=== PATIENT | male | born 1955 | race Caucasian/White ===

== ENCOUNTER 2021-03-08 06:26 | Day surgery (SDC) | payer MEDICARE ==
[~2021-03-08] VITALS: Ht 190.5 cm; Wt 76.5 kg
[2021-03-08] VITALS (11 sets, daily range): BP systolic 112–140; BP diastolic 60–88; PULSE 56–83; TEMP 97.4–98.6
[2021-03-08] MEDS ORDERED: MOTRIN 200200 MG/TAB PO (07:05)
--- NOTE | 2021-03-08 07:17 | NUR ---
TO RM 7 AT 0645- CALL LIGHT IN REACH AT BEDSIDE.
--- NOTE | 2021-03-08 11:38 | NUR ---
PT. SAYS CANNOT FEEL FROM WAIST TO TOES YET
--- NOTE | 2021-03-08 15:54 | NUR ---
Patient arrived to floor at 1045. Post op checks initiated and completed. IVF per order. CBI at a slow rate, urine is clear and light pink. Patient denies pain, complete sensation in legs has not returned from spinal yet. Patient tolerated full liquids well. Denies further needs, call light within reach.
--- NOTE | 2021-03-08 16:51 | NUR ---
REPORT FROM EULALIO RN ASSUMING CARE FOR PATIENT.
--- NOTE | 2021-03-08 21:00 | NUR ---
PT IN BED. IS ALERT AND ORIENTED X4. HAS CROUCH WITH CBI AT MODERATE RATE, URINE IS PINK. DENIES PAIN. CATHETER CARE GIVEN. SL TO LEFT FOREARM, FLUSHES WELL.
[2021-03-09 00:11] VITALS: BP 130/74; PULSE 77; TEMP 98.1
[2021-03-09 04:05] VITALS: BP 130/84; PULSE 71; TEMP 98.6
--- NOTE | 2021-03-09 05:00 | NUR ---
PT HAS RESTED WELL. CROUCH WITH CBI AT SLOW RATE. URINE PEACH COLORED.
[2021-03-09 08:10] VITALS: BP 130/80; PULSE 91; TEMP 98.1
--- NOTE | 2021-03-09 08:30 | NUR ---
Patient in bed resting. Alert and oriented x 3. Assessment complete. Denies pain at this time. CBI clamped at this time, urine light pink to peach in color. INT to left forarm. Spouse at bedside. Denies further needs at this time.
--- NOTE | 2021-03-09 08:55 | NUR ---
FRANCO met with the patient and his , Lesia (ph#[phone]), to discuss discharge plan. The patient lives in [place] with his . He reports independence with ADLs and has crutches available, if needed. His PCP is Dr. Jalil Tilley and he receives his medications from [facility]. He reports no difficulties obtaining his meds. The patient does not have a DPOA-HC and he was not interested in completing one while here. The patient plans to return home with his upon discharge. No additional needs at this time.
--- NOTE | 2021-03-09 09:15 | NUR ---
Initial visit; Patient and his thanked Vice President Planning for looking in on [facility] and stated that they have no spiritual needs at this time but thanked [employer] President [employer] for offering God's blessings to their family.
--- NOTE | 2021-03-09 10:34 | NUR ---
ordered prime and pull. Instilled 250ml into bladder prior to removing the catheter. Verified that balloon was intact. Pericare provided.
--- NOTE | 2021-03-09 11:06 | NUR ---
Dr. Chen in to see patient.
[2021-03-09 12:30] VITALS: BP 130/80; PULSE 71; TEMP 98.4
--- NOTE | 2021-03-09 13:15 | NUR ---
Contacted Dr. Chen, bladder scanned patient for 688 ml of urine in bladder, patient states he does not feel like if he needs to void. Denies further needs at this time.
--- NOTE | 2021-03-09 16:03 | NUR ---
Patient able to void 275 mls of urine.
[2021-03-09 16:51] VITALS: BP 138/82; PULSE 67; TEMP 98
--- NOTE | 2021-03-09 17:30 | NUR ---
Patient able to void 300 ml urine
--- NOTE | 2021-03-09 18:19 | NUR ---
Patient voided 200 ml urine
--- NOTE | 2021-03-09 19:25 | NUR ---
Discharge instructions provided to patient. Educated on when to call provider and how to self cath. Provided patient with x2 16 F coude straight cath per Dr. Chen. Patient to self cath PRN. All questions answered. INT discontinued, catheter tip intact. Denies further needs at this time. Spouse at bedside.
--- NOTE | 2021-03-09 19:30 | NUR ---
Patient out by wheelchair with surgical staff and spouse.
== END 2021-03-09 19:31 | disposition home or self-care (01) ==
LOC: SDCO 06:26 → SURG 06:26 → SDCO 10:00 → SURG 10:45 → SDCO 03-09 19:31
DX: N40.1 Benign prostatic hyperplasia with lower urinary tract symptoms (principal); N13.39 Other hydronephrosis; N13.8 Other obstructive and reflux uropathy; N32.89 Other specified disorders of bladder; R33.8 Other retention of urine; M19.90 Unspecified osteoarthritis, unspecified site; M43.10 Spondylolisthesis, site unspecified; I10 Essential (primary) hypertension; F17.210 Nicotine dependence, cigarettes, uncomplicated; Z79.891 Long term (current) use of opiate analgesic; Z79.899 Other long term (current) drug therapy; Z86.73 Personal history of transient ischemic attack (TIA), and cerebral infarction without residual deficits; Z20.822 Contact with and (suspected) exposure to COVID-19; Z88.8 Allergy status to other drugs, medicaments and biological substances
CPT/HCPCS: OP; J0690; J2250; J2704; J3010; J7120

== ENCOUNTER 2024-01-01 10:00 | Day surgery (SDC) | payer MEDICARE ==
[~2024-01-01] VITALS: Ht 190.5 cm; Wt 76.4 kg
[~2024-01-01 10:00] MED LIST: MOTRIN 200200 MG/TAB PO
[2024-01-01] MEDS ORDERED: CIPRO 500MG TA500 MG PO (11:14)
[2024-01-01] MEDS ORDERED: GEMTESA75 MG PO (11:15)
[2024-01-01] MEDS ORDERED: FLOMAX 0.40.4 MG/CAP PO (11:15)
[2024-01-01] MEDS ORDERED: PRINIVIL5 MG PO (11:16)
[2024-01-01] MEDS ORDERED: INDOCIN50 MG PO (11:17)
[2024-01-01] MEDS ORDERED: CONSTULOSE 20G/30ML (11:17)
[2024-01-01] MEDS ORDERED: MIRALAX119G PO (11:18)
[2024-01-01 11:30] LABS: HEMOGLOBIN 12.3 g/dl (13.5-18.0); MEAN CELL VOLUME 92 fl (80.0-100.0); MEAN CORPUSCULAR HEMOGLOBIN 32 pg (27-31); MEAN CORPUSCULAR HGB CONC 35 g/dl (33.0-37.0); MEAN PLATELET VOLUME 9.1 fl (7.4-10.4); PLATELET COUNT 661 K/mm3 (130-400); RED BLOOD COUNT 3.84 M/mm3 (4.20-5.60); REDCELL DISTRIBUTION WIDTH-CV 12.7 % (11.5-14.5)
[2024-01-01 11:32] LABS: HEMATOCRIT 35.4 % (42.0-52.0)
[2024-01-01 12:00] LABS: CALCIUM 9.4 mg/dL (8.4-10.2); CREATININE, serum 1.72 mg/dL (0.72-1.25); POTASSIUM 4.2 mmol/L (3.5-4.5)
[2024-01-01] MEDS ORDERED: MOTRIN 600600 MG/TAB PO (14:55)
[2024-01-01] MEDS ORDERED: NORCO 325 MG-51 TAB PO (14:55)
[2024-01-01 15:34] VITALS: BP 125/75; PULSE 85; TEMP 97.7
--- NOTE | 2024-01-01 15:44 | NUR ---
1038 Pt ambulatory to bay 6 with a steady gait, breathing even and unlabored. Pt is alert and oriented, accompanied by his . Consents reviewed and signed by pt. IV established. LR infusing via gravity at KVO. Call light in reach. Warm blanket provided.
[2024-01-01 15:45] VITALS: BP 119/64; PULSE 82; TEMP 98.1
[2024-01-01 16:00] VITALS: BP 114/63; PULSE 86
[2024-01-01 16:15] VITALS: BP 113/60; PULSE 82
[2024-01-01 16:30] VITALS: BP 115/61; PULSE 82
--- NOTE | 2024-01-01 16:45 | NUR ---
1545 RETURNS TO ROOM 6 PER CART. AWAKE, ALERT. HOB ELEVATED 30 DEGREES. RESP UNLABORED. ABD SOFT. INCISION X 3 SITES INTACT. NO REDNESS OR EDEMA OBSERVED. REPORTS MILD ABD DISCOMFORT. DENIES NEED FOR PAIN MED 1600 TOLERATES PO WATER AND JUICE WITHOUT NAUSEA 1610 CONVERSES WITH 1620 DISCHARGE INSTRUCTIONS REVIEWED PATIENT VERBALIZES UNDERSTANDING. COPY PROVIDED IN DISCHARGE FOLDER 1630 SITS ON EDGE OF BED. DRESSES WITH MINIMAL ASSIST FROM . DENIES URINARY URGENCY. PLANS TO RESUME SELF CATHING AT HOME
== END 2024-01-01 16:45 | disposition home or self-care (01) ==
LOC: SDCO 10:00
PROVIDERS: Surgery
DX: K40.21 Bilateral inguinal hernia, without obstruction or gangrene, recurrent (principal); F17.210 Nicotine dependence, cigarettes, uncomplicated
CPT/HCPCS: J0330; J0690; J1100; J2405; J2704; J3010; J7120